=== PATIENT | female | born 1960 | race African-American/Black ===

== ENCOUNTER 2022-02-06 11:36 | Inpatient (IN) | payer OTHER ==
[2022-02-06 13:23] VITALS: BMI 17.3
[2022-02-06] MEDS ORDERED: MAGNESIUM HYDROX 2400MG/30ML ORAL SUSPENSION 30 ML CUP PO PRN (15:20)
[2022-02-06] MEDS ORDERED: BISMUTH SUBSALICYLATE 524 MG/30 ML PO PRN (15:20)
[2022-02-06] MEDS ORDERED: NALOXONE HCL (KLOXXADO) 8 MG SPRAY NS PRN (15:20)
[2022-02-06] MEDS ORDERED: chlordiazePOXIDE HCL 25 MG CAPSULE PO PRN (15:20)
[2022-02-06] MEDS ORDERED: MAG HYDROX/AL HYDROX/SIMETH 30 ML UNIT-DOSE CUP PO PRN (15:20)
[2022-02-06] MEDS ORDERED: MAGNESIUM CITRATE 300 ML BOTTLE PO PRN (15:20)
[2022-02-06] MEDS ORDERED: IBUPROFEN 600 MG TABLET (FP) PO PRN (15:20)
[2022-02-06] MEDS ORDERED: ONDANSETRON *ODT* 4 MG TABLET SL PRN (15:20)
[2022-02-06] MEDS ORDERED: DICYCLOMINE HCL 10 MG CAPSULE PO PRN (15:20)
[2022-02-06] MEDS ORDERED: ACETAMINOPHEN 325 MG TABLET (FP) PO PRN ×2 (15:20)
[2022-02-06] MEDS ORDERED: NICOTINE POLACRILEX 2 MG GUM BUC PRN (15:20)
[2022-02-06] MEDS ORDERED: LOPERAMIDE HCL 2 MG CAPSULE PO PRN (15:20)
[2022-02-06] MEDS ORDERED: IBUPROFEN 400 MG TABLET (FP) PO PRN (15:20)
[2022-02-06] MEDS ORDERED: NICOTINE 10 MG CARTRIDGE (INHALER) IH PRN (15:20)
[2022-02-06] MEDS ORDERED: BENZOCAINE/MENTHOL (CHLORASEPTIC ) LOZENGE MM PRN (15:20)
[2022-02-06] MEDS ORDERED: chlordiazePOXIDE HCL 25 MG CAPSULE PO ONE (16:00)
[2022-02-06] MEDS: NICOTINE 14 MG/24 HOURS TOPICAL PATCH TD SCH (16:43)
[2022-02-06] MEDS: PRENATAL VITAMINS W/ FOLIC ACID TABLET (FP) PO SCH (16:51)
[2022-02-06] MEDS: hydrOXYzine PAMOATE 25 MG CAPSULE (FP) PO SCH ×2 (17:52→22:29)
[2022-02-06] MEDS: chlordiazePOXIDE HCL 25 MG CAPSULE PO SCH ×2 (18:26→22:29)
[2022-02-06] MEDS: METHOCARBAMOL 500 MG TABLET PO PRN (22:29)
[2022-02-06] MEDS: THIAMINE HCL 100 MG TABLET (FP) PO SCH (22:29)
[2022-02-06] MEDS: MELATONIN 5 MG TABLETS PO SCH (22:29)
[2022-02-07] MEDS: hydrOXYzine PAMOATE 25 MG CAPSULE (FP) PO SCH ×5 (05:37→21:36)
[2022-02-07] MEDS: chlordiazePOXIDE HCL 25 MG CAPSULE PO SCH ×2 (05:37→10:08)
[2022-02-07] MEDS ORDERED: cloNIDine HCL 0.1 MG TABLET PO ONE (08:30)
[2022-02-07] MEDS: PRENATAL VITAMINS W/ FOLIC ACID TABLET (FP) PO SCH (10:08)
[2022-02-07] MEDS: methaDONE HCL 40 MG DISPERSABLE TABLET PO SCH (10:10)
[2022-02-07] MEDS: NICOTINE 14 MG/24 HOURS TOPICAL PATCH TD SCH (10:11)
[2022-02-07 12:27] LABS: HEMATOCRIT 39.7 % (32.4-45.2); HEMOGLOBIN 12.8 GM/dL (10.7-15.3); MCH 30.4 pg (25.7-33.7); MCHC 32.4 g/dl (32.0-36.0); MEAN CELL VOLUME 94.1 fl (80-96); MEAN PLT VOLUME 9.9 fl (7.5-11.1); PLATELET COUNT 132 10^3/uL (134-434); RBC 4.22 M/mm3 (3.60-5.2); RDW 15.6 % (11.6-15.6)
[2022-02-07 12:49] LABS: CHLORIDE 98 mmol/L (98-107); SODIUM 141 mmol/L (136-145)
[2022-02-07 12:58] LABS: CALCIUM 9.2 mg/dL (8.5-10.1)
[2022-02-07 12:59] LABS: ALBUMIN 3.3 g/dl (3.4-5.0); BLOOD UREA NITROGEN 11.3 mg/dL (7-18); CO2 36 mmol/L (21-32); GLUCOSE,RANDOM 91 mg/dL (74-106)
[2022-02-07 13:01] LABS: SGPT/ALT 165 U/L (13-61)
[2022-02-07 13:02] LABS: CREATININE 0.8 mg/dL (0.55-1.3); SGOT/AST 133 U/L (15-37)
[2022-02-07 13:03] LABS: BILIRUBIN,TOTAL 0.8 mg/dL (0.2-1); TOT PROT 6.6 g/dl (6.4-8.2)
[2022-02-07 13:04] LABS: ALK PHOS 215 U/L (45-117)
[2022-02-07 13:25] LABS: ANION GAP 7 MMOL/L (8-16)
[2022-02-07] MEDS ORDERED: POTASSIUM CHLORIDE TABS 20 MEQ TABLET.ER (FP) PO ONE ×2 (14:15→21:00)
[2022-02-07] MEDS ORDERED: LORazepam 1 MG TABLET PO PRN (15:19)
[2022-02-07] MEDS: LORazepam 1 MG TABLET PO SCH ×2 (17:46→22:18)
[2022-02-07] MEDS: THIAMINE HCL 100 MG TABLET (FP) PO SCH (22:18)
[2022-02-07] MEDS: MELATONIN 5 MG TABLETS PO SCH (22:18)
[2022-02-07] MEDS: METHOCARBAMOL 500 MG TABLET PO PRN (22:20)
[2022-02-08] MEDS ORDERED: chlordiazePOXIDE HCL 25 MG CAPSULE PO SCH (05:00)
[2022-02-08] MEDS: hydrOXYzine PAMOATE 25 MG CAPSULE (FP) PO SCH ×5 (05:32→22:18)
[2022-02-08] MEDS: LORazepam 1 MG TABLET PO SCH ×4 (05:32→22:18)
[2022-02-08] MEDS: methaDONE HCL 40 MG DISPERSABLE TABLET PO SCH (05:33)
[2022-02-08] MEDS: PRENATAL VITAMINS W/ FOLIC ACID TABLET (FP) PO SCH (10:18)
[2022-02-08] MEDS: amLODIPine BESYLATE 10 MG TABLET (FP) PO SCH (10:18)
[2022-02-08] MEDS: NICOTINE 14 MG/24 HOURS TOPICAL PATCH TD SCH (10:20)
[2022-02-08] MEDS: METHOCARBAMOL 500 MG TABLET PO PRN (22:17)
[2022-02-08] MEDS: MELATONIN 5 MG TABLETS PO SCH (22:18)
[2022-02-08] MEDS: THIAMINE HCL 100 MG TABLET (FP) PO SCH (22:18)
[2022-02-09] MEDS ORDERED: LORazepam 0.5 MG TABLET PO PRN
[2022-02-09] MEDS ORDERED: chlordiazePOXIDE HCL 10 MG CAPSULE PO PRN
[2022-02-09] MEDS ORDERED: chlordiazePOXIDE HCL 10 MG CAPSULE PO SCH (05:00)
[2022-02-09] MEDS: hydrOXYzine PAMOATE 25 MG CAPSULE (FP) PO SCH ×5 (05:25→22:09)
[2022-02-09] MEDS: LORazepam 0.5 MG TABLET PO SCH ×4 (05:25→22:09)
[2022-02-09] MEDS: methaDONE HCL 40 MG DISPERSABLE TABLET PO SCH (05:25)
[2022-02-09] MEDS: NICOTINE 14 MG/24 HOURS TOPICAL PATCH TD SCH (10:12)
[2022-02-09] MEDS: amLODIPine BESYLATE 10 MG TABLET (FP) PO SCH (10:13)
[2022-02-09] MEDS: PRENATAL VITAMINS W/ FOLIC ACID TABLET (FP) PO SCH (10:13)
[2022-02-09] MEDS: METHOCARBAMOL 500 MG TABLET PO PRN (15:53)
[2022-02-09] MEDS: MELATONIN 5 MG TABLETS PO SCH (22:09)
[2022-02-09] MEDS: THIAMINE HCL 100 MG TABLET (FP) PO SCH (22:09)
[2022-02-10] MEDS ORDERED: LORazepam 0.5 MG TABLET PO ONE (05:00)
[2022-02-10] MEDS ORDERED: chlordiazePOXIDE HCL 10 MG CAPSULE PO SCH (05:00)
[2022-02-10] MEDS: methaDONE HCL 40 MG DISPERSABLE TABLET PO SCH (06:09)
[2022-02-10] MEDS: hydrOXYzine PAMOATE 25 MG CAPSULE (FP) PO SCH ×2 (06:09→09:06)
[2022-02-10 07:04] VITALS: RESP 18
[2022-02-10] MEDS: amLODIPine BESYLATE 10 MG TABLET (FP) PO SCH (09:05)
[2022-02-10] MEDS: NICOTINE 14 MG/24 HOURS TOPICAL PATCH TD SCH (09:05)
[2022-02-10] MEDS: PRENATAL VITAMINS W/ FOLIC ACID TABLET (FP) PO SCH (09:05)
[2022-02-10 09:24] VITALS: BP 156/106; PULSE 111; TEMP 97.5
[2022-02-11] MEDS ORDERED: chlordiazePOXIDE HCL 10 MG CAPSULE PO ONE (05:00)
== END 2022-02-10 11:20 | disposition home or self-care (01) | DRG 897 ==
LOC: YASAS 11:36 → Y3N 15:25
PROVIDERS: ADMIT Allergy & Immunology; ATTEND Surgery
PROC: HZ2ZZZZ Detoxification Services for Substance Abuse Treatment (ICD-10-PCS; principal; 2022-02-06)
DX: F10.230 Alcohol dependence with withdrawal, uncomplicated (principal); F11.20 Opioid dependence, uncomplicated; F17.210 Nicotine dependence, cigarettes, uncomplicated; E87.6 Hypokalemia; I10 Essential (primary) hypertension; R74.8 Abnormal levels of other serum enzymes
CPT/HCPCS: 36415; 80053; 84132; 85027; 86780; 93005; 93010; C9803-CS; U0003; U0005